=== PATIENT | male | born 1960 | race Caucasian/White ===

== ENCOUNTER 2018-08-24 08:41 | Day surgery (SDC) | payer OTHER ==
[~2018-08-24] VITALS: Ht 177.8 cm; Wt 108.9 kg
[2018-08-24] MEDS ORDERED: SODIUM PHOSPHATE 118 ML ENEM RC PRN (11:30)
== END 2018-08-24 11:39 | disposition home or self-care (01) ==
LOC: MMU 08:41 → MDS 08:41 → MMU 08:46 → MDS 11:39
PROVIDERS: ATTEND Internal Medicine Gastroenterology
DX: Z12.11 Encounter for screening for malignant neoplasm of colon (principal); Z53.8 Procedure and treatment not carried out for other reasons; I10 Essential (primary) hypertension; K21.9 Gastro-esophageal reflux disease without esophagitis; Z95.818 Presence of other cardiac implants and grafts; Z98.890 Other specified postprocedural states; Z88.1 Allergy status to other antibiotic agents; Z86.711 Personal history of pulmonary embolism

== ENCOUNTER 2018-09-23 16:27 | Inpatient (IN) | payer OTHER ==
[~2018-09-23] VITALS: Ht 177.8 cm; Wt 108.9 kg
[2018-09-23 16:32] VITALS: BP 134/94
--- NOTE | 2018-09-23 16:42 | NUR ---
PT AMBULATED TO ER BED 4
--- NOTE | 2018-09-23 16:45 | NUR ---
PT BIB SELF WITH C/O PAIN ATH THE LEFT JAW, UNDER LFT EAR. SITE IS SWOLLEN, PAINFUL TO TOUCH.PT STATES HAD GONE TO [facility] WITH PAIN AT HIS LFT JAW, WAS DIAGNOSED WITYH LEFT SALIVARY GLAND INFECTION, TOOK AUGMENTIN, DID NOT GET RELIEVED. PAIN 10/27. TEM 99.3. STATES TO HAVE TAKEN TTYELENOL AT HOME THIS AFTERNOON BEFORE COMING TO ER FOR HIS PAIN. 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 HX: DVT, HEART ATTACK, HTN, HIGH CHOLESTROL. TX: WARFARIN, BRILLNTA, AMLODIPINE, CARDILOL, AONTELUKAST, PROTONIX, ATROVASTATIN, ASPIRIN, QVAR
[2018-09-23] MEDS ORDERED: ACETAMINOPHEN EXTRA STRENGTH 500 MG TAB PO ONE (16:50)
--- NOTE | 2018-09-23 16:50 | NUR ---
INTERACTIVE MEDIA SPECIALIST AT THE BEDSIDE.
[2018-09-23 17:08] LABS: BASOPHILS % (AUTO) 0.2 % (0.0-2.0); EOSINOPHILS # (AUTO) 0.1 K/uL (0-0.4); EOSINOPHILS % (AUTO) 0.8 % (0.0-4.0); HEMOGLOBIN 13.3 g/dL (12.0-18.0); LYMPHOCYTES # (AUTO) 1.3 K/uL (2.0-11.5); LYMPHOCYTES % (AUTO) 15.6 % (20.5-51.1); MEAN CORPUSCULAR HEMOGLOBIN 29 pg (27-31); MEAN CORPUSCULAR HGB CONC 34 g/dL (33-37); MEAN CORPUSCULAR VOLUME 84.8 fL (80-94); MONOCYTES # (AUTO) 0.7 K/uL (0.8-1.0); NEUTROPHILS # (AUTO) 6.4 K/uL (1.8-7.7); NEUTROPHILS % (AUTO) 75.4 % (42.2-75.2); PLATELET COUNT (AUTO) 248 K/uL (140-450); RED CELL DISTRIBUTION WIDTH 15.4 % (11.6-13.7); WHITE BLOOD COUNT (AUTO) 8.5 K/uL (4.8-10.8)
--- NOTE | 2018-09-23 17:10 | NUR ---
DR. CORDOBA BEDSIDE EVALUATING PT
[2018-09-23 17:18] LABS: ANION GAP 11.9 (8-16); CARBON DIOXIDE 26.3 mmol/L (21-32); CREATININE 1.4 mg/dL (0.7-1.3); POTASSIUM 4.2 mmol/L (3.5-5.1)
[2018-09-23] MEDS ORDERED: NACL 0.9% 1,000 ML IV ONE (17:20)
[2018-09-23 17:21] LABS: PROTHROMBIN TIME 17.5 secs (10.8-13.4)
[2018-09-23 17:24] LABS: ALBUMIN 2.8 g/dL (3.4-5.0); TOTAL BILIRUBIN 0.6 mg/dL (0.0-1.0)
[2018-09-23] MEDS ORDERED: CLINDAMYCIN 900 MG in DEXTROSE 5% 100 ML IV ONE (17:25)
--- NOTE | 2018-09-23 17:40 | NUR ---
PT WENT FOR CT.
[2018-09-23] MEDS ORDERED: CLINDAMYCIN 900 MG/6 ML VIAL IV ONE (17:49)
--- NOTE | 2018-09-23 17:53 | NUR ---
PT RETURNED TO CT VIA BED
--- NOTE | 2018-09-23 18:18 | NUR ---
TEM 99.5. PAIN 2/10. SLEEPING COMFORTABLY IN HIS BED. SIDE RAQILS UP, BED AT LOWER POSITION.
[2018-09-23] MEDS ORDERED: ATOR40TA PO (18:51)
[2018-09-23] MEDS ORDERED: PANT40EC PO (18:51)
[2018-09-23] MEDS ORDERED: ASPI-1718 PO (18:51)
[2018-09-23] MEDS ORDERED: AMLO5TAB PO (18:51)
[2018-09-23] MEDS ORDERED: TICA90TA PO (18:51)
[2018-09-23] MEDS ORDERED: CARV6.25 PO (18:51)
[2018-09-23] MEDS ORDERED: WARF1TAB PO (18:51)
[2018-09-23] MEDS ORDERED: MONT10TA35 PO (18:51)
[2018-09-23 19:15] VITALS: BP 116/60
--- NOTE | 2018-09-23 19:15 | NUR ---
REPORT GIVEN TO BRIDGETTE GÓMEZ. PT ALISON .
--- NOTE | 2018-09-23 19:15 | NUR ---
RECEIVED REPORT FROM ZEINA PAPER CORE MACHINE OPERATOR NURSE AT BEDSIDE FOR CONTINUITY OF CARE, PT IN STABLE CONDITION.
--- NOTE | 2018-09-23 21:00 | NUR ---
PT IN BED SIDE RAILS UP X2. PT IS ABLE TO AMBULATE INDEPENDENTLY. HE IS AOX4 WITH SKIN INTACT EXCEPT FOR RT F/A 20G AND HE HAS FACIAL SWELLING TO LEFT SIDE OF FACE. V/S FOLLOWS T 98.7 P 82 R 18 B/P 122/77 02 97% ON ROOM AIR.PT RUNNING CLINDAMYCIN.
[2018-09-23] MEDS ORDERED: ACETAMINOPHEN 325 MG TAB PO PRN (22:55)
[2018-09-23] MEDS ORDERED: ALPRAZolam 0.5 MG TAB PO PRN (22:55)
[2018-09-23] MEDS ORDERED: KETOROLAC 15 MG/ML VIAL IVP PRN (22:55)
--- NOTE | 2018-09-23 23:50 | NUR ---
PT IN BED C/O OF FEELING VERY UNCOMFORTABLE HERE, PT SAID THAT HE HAS SINUS AND CONGESTION ISSUES AND THAT BETWEEN THE SLEEP APNEA AND CONGESTION, PT WANTS TO LEAVE AMA. RISKS AND BENEFITS EXPLAINED. PT LEFT WITH BELONGS IN HAND.
[2018-09-24] MEDS ORDERED: CLINDAMYCIN 900 MG in DEXTROSE 5% 100 ML IV SCH (05:00)
[2018-09-24] MEDS ORDERED: PANTOPRAZOLE 40 MG TABEC PO SCH (07:30)
[2018-09-24] MEDS ORDERED: CARVEDILOL 6.25 MG TAB PO SCH (08:00)
[2018-09-24] MEDS ORDERED: ATORVASTATIN 20 MG TAB PO SCH (09:00)
[2018-09-24] MEDS ORDERED: WARFARIN 1 MG TAB PO SCH (09:00)
[2018-09-24] MEDS ORDERED: MONTELUKAST SODIUM 10 MG TAB PO SCH (09:00)
[2018-09-24] MEDS ORDERED: amLODIPine 5 MG TAB PO SCH (09:00)
[2018-09-24] MEDS ORDERED: ASPIRIN 81 MG TAB.CHEW PO SCH (09:00)
--- NOTE | 2018-09-25 13:29 | NUR ---
Late entry. Confirmed with RN that 100ml/hr 0.9 NS IV continued until 1856.
== END 2018-09-23 23:50 | disposition left against medical advice (07) | DRG 385 ==
LOC: MED 16:27 → MMU 18:39
PROVIDERS: ADMIT Internal Medicine Pulmonary Disease; ATTEND Internal Medicine Pulmonary Disease
DX: R22.0 Localized swelling, mass and lump, head (principal); E78.00 Pure hypercholesterolemia, unspecified; E78.5 Hyperlipidemia, unspecified; I10 Essential (primary) hypertension; I25.2 Old myocardial infarction; Z86.711 Personal history of pulmonary embolism; Z86.718 Personal history of other venous thrombosis and embolism; Z88.1 Allergy status to other antibiotic agents
CPT/HCPCS: 36415; 70487; 70491; 80053; 83605; 85025; 85610; 85730; 87040; 99285; J3490; J7060; Q9967